=== PATIENT | female | born 1975 | race African-American/Black ===

== ENCOUNTER 2022-07-04 07:00 | Emergency (ER) | payer OTHER, SELFPAY ==
--- OUTSIDE RECORDS SUMMARY | 2022-07-04 07:07 | XMS REPORT | Continuity of Care Document ---
:1975 Author Organization [facility] t Address [address]. [address] [place] [address] Care Team Providers Name Role Phone Glo Moreno Attending Clinician Unavailable LEYDA PASTRANA Attending Clinician Unavailable Doctor Unassigned, [place] Attending Clinician Unavailable BON BAKER Attending Clinician Unavailable Lab, Adc Fam Pob I Attending Clinician Unavailable Torrie Silva Attending Clinician Unknown, Attending Attending Clinician Unavailable Bon Cunningham Attending Clinician [facility] Resident Attending Clinician Unavailable Margaret Floyd MD Attending Clinician Leyda Peralta Attending Clinician [phone] Mehran Desouza PA-C Attending Clinician [phone] MEHRAN DESOUZA JR Attending Clinician Unavailable Robert Ayoub B Attending Clinician Glo Moreno Admitting Clinician Unavailable Payers Payer Name Policy Type Policy Number Effective Date Expiration Date S ource Problems Condition Condition Condition Status Onset Resolution Last Treating Co mments Source Name Details Category Date Date Treatment Clinician Date Leiomyoma Leiomyoma Disease Active 2019-04 Uni vers of uterus of uterus 04-19 ity of 00:00: [place] [facility] Fibroid Fibroid Disease Active 2019-04 Univers 04-19 ity of 00:00: [place] [facility] Irregular Irregular Disease Active 2019-04 Uni vers menstrual menstrual 04-19 ity of bleeding bleeding 00:00: [place] [facility] Well woman Well woman Disease Active Overview : Univers exam (no exam (no 04-29 ROR for ity o f gynecologi gynecologi 00:00[place] gutierrez exam[place] gutierrez exam) 00 12/2019 Med ical Branch Surveillan Surveillan Disease Active U nivers ce of ce of 04-29 ity of [place] prescribed prescribed 00 Me dical contracept contracept Br anch horacio method horacio method H/O tubal H/O tubal Disease Active Uni vers ligation ligation 04-29 ity of 00:00: [place] [facility] Tobacco Tobacco Disease Active 2013-04 Univers use use 0-22 ity of disorder disorder 00:00: [place] [facility] Hypertensi Hypertensi Disease Active 2013-04 U nivers on on 0-22 ity of 00:00: [place] [facility] Allergies, Adverse Reactions, Alerts Allergy Allergy Status Severity Reaction(s) Onset Inactive Treating Comm ents Source Name Type Date Date Clinician Iodine FA Active [facility] and 07-16 [place] Iodide 00:00: d Containi [facility] Produc Iodine FA Active SV THROAT [facility] and SWELLING 07-16 [place] Iodide 00:00: d Containi [facility] Produc No Known DA Active U [facility] Allergie 31 [place] s 00:00: d 00 [facility] No Known DA Active U [facility] Allergie -31 [place] s 00:00: d 00 [facility] IODINE DRUG Active Anaphylaxis 2013-04 Unive rs INGREDI 0-15 ity of 00:00: [place] [facility] Iodine Propensi Active Anaphylaxis 2013-04 Uni vers ty to 0-15 ity of adverse 00:00: [place] reaction 00 Medical s Branch Social History Social Habit Start Date Stop Date Quantity Comments Source Exposure to Not sure University of SARS-CoV-2 [facility] (event) Branch History of Smoker University of tobacco use [facility] Alcohol intake 2020-02-18 2020-02-18 Current drinker of Un iversity of 00:00:00 00:00:00 alcohol (finding) [facility] Cigarettes smoked 2020-02-18 2020-02-18 Univers ity of current (pack per 00:00:00 00:00:00 [facility]) - Reported Branch Tobacco use and 2020-02-18 2020-02-18 Never used Universit y of exposure 00:00:00 00:00:00 [facility] Tobacco Comment 2014-01-29 2014-01-29 smokes a pack over U niversity of 00:00:00 00:00:00 2 weeks [facility] Alcohol Comment 2014-01-29 2014-01-29 occasionally Univers ity of 00:00:00 00:00:00 [facility] Sex [birth year] Universit y of 00:00:00 00:00:00 [facility] Smoking Status Start Date Stop Date Source Current every day smoker 2020-02-18 00:00:00 Uni versity [facility] Current some day smoker 2020-02-05 00:00:00 Univ ersity [facility] Medications Ordered Filled Start Stop Current Ordering Indication Dosage Frequency Signature Comments Components Source Medication Medication Date Date Medication? Clinician (SIG) Name Name ibuprofen 2019-04- No 800mg Univer s (IBU) 05-11 ity of tablet 800 22:54: 23:00 [place] mg 00 :00 [facility] ibuprofen 2019-04- No 800mg 800 mg, Uni vers (IBU) 05-11 Oral, ity of tablet 800 22:54: 23:00 ONCE, 1 [place] as mg 00 :00 dose, [facility] 03/11/20 Branch at 1700, Routine ibuprofen 2019-04- No 800mg Univer s (IBU) 05-11 ity of tablet 800 22:54: 23:00 [place] mg 00 :00 [facility] ibuprofen 2019-04- No 800mg 800 mg, Uni vers (IBU) 05-11 Oral, ity of tablet 800 22:54: 23:00 ONCE, 1 [place] as mg 00 :00 dose, [facility] 03/11/20 Branch at 1700, Routine HYDROcodone 2019-04 Yes 1{tbl} Take 1 Tab Univers -acetaminop 1-03 by mouth ity of hen (NORCO) 14:52: every 6 Raj as 10-325 mg 02 (six) Medical tablet hours as Branch needed. atenolol 2019-04 Yes 25mg Take 25 mg Uni vers (TENORMIN) 1-03 by mouth ity o f 25 mg 14:52: daily. [place] tablet [facility] SILVER 2019-04 Yes Apply to Univers SULFADIAZIN 1-03 area(s) as it y of E TOPICAL 14:52: needed. [address] HYDROcodone 2019-04 Yes 1{tbl} Take 1 Tab Univers -acetaminop 1-03 by mouth ity of hen (NORCO) 14:52: every 6 Raj as 10-325 mg 02 (six) Medical tablet hours as Branch needed. atenolol 2019-04 Yes 25mg Take 25 mg Uni vers (TENORMIN) 1-03 by mouth ity o f 25 mg 14:52: daily. [facility] SILVER 2019-04 Yes Apply to Univers SULFADIAZIN 1-03 area(s) as it y of E TOPICAL 14:52: needed. [address] HYDROcodone 2019-04 Yes 1{tbl} Take 1 Tab Univers -acetaminop 1-03 by mouth ity of hen (NORCO) 14:52: every 6 Raj as 10-325 mg 02 (six) Medical tablet hours as Branch needed. atenolol 2019-04 Yes 25mg Take 25 mg Uni vers (TENORMIN) 1-03 by mouth ity o f 25 mg 14:52: daily. [facility] [place] [facility] SILVER 2019-04 Yes Apply to Univers SULFADIAZIN 1-03 area(s) as it y of E TOPICAL 14:52: needed. [address] HYDROcodone 2019-04 Yes 1{tbl} Take 1 Tab Univers -acetaminop 1-03 by mouth ity of hen (NORCO) 14:52: every 6 Raj as 10-325 mg 02 (six) Medical tablet hours as Branch needed. atenolol 2019-04 Yes 25mg Take 25 mg Uni vers (TENORMIN) 1-03 by mouth ity o f 25 mg 14:52: daily. [facility] [place] [facility] Medical Branch SILVER 2019-04 Yes Apply to Univers SULFADIAZIN 1-03 area(s) as it y of E TOPICAL 14:52: needed. [address] HYDROcodone 2019-04 Yes 1{tbl} Take 1 Tab Univers -acetaminop 1-03 by mouth ity of hen (NORCO) 14:52: every 6 Raj as 10-325 mg 02 (six) Medical tablet hours as Branch needed. atenolol 2019-04 Yes 25mg Take 25 mg Uni vers (TENORMIN) 1-03 by mouth ity o f 25 mg 14:52: daily. [place] tablet [facility] SILVER 2019-04 Yes Apply to Univers SULFADIAZIN 1-03 area(s) as it y of E TOPICAL 14:52: needed. [address] HYDROcodone 2019-04 Yes 1{tbl} Take 1 Tab Univers -acetaminop 1-03 by mouth ity of hen (NORCO) 14:52: every 6 Raj as 10-325 mg 02 (six) Medical tablet hours as Branch needed. atenolol 2019-04 Yes 25mg Take 25 mg Uni vers (TENORMIN) 1-03 by mouth ity o f 25 mg 14:52: daily. [place] tablet [facility] SILVER 2019-04 Yes Apply to Univers SULFADIAZIN 1-03 area(s) as it y of E TOPICAL 14:52: needed. [address] HYDROcodone 2019-04 Yes 1{tbl} Take 1 Tab Univers -acetaminop 1-03 by mouth ity of hen (NORCO) 14:52: every 6 Raj as 10-325 mg 02 (six) Medical tablet hours as Branch needed. atenolol 2019-04 Yes 25mg Take 25 mg Uni vers (TENORMIN) 1-03 by mouth ity o f 25 mg 14:52: daily. [place] tablet [facility] SILVER 2019-04 Yes Apply to Univers SULFADIAZIN 1-03 area(s) as it y of E TOPICAL 14:52: needed. [address] HYDROcodone 2019-04 Yes 1{tbl} Take 1 Tab Univers -acetaminop 1-03 by mouth ity of hen (NORCO) 14:52: every 6 Raj as 10-325 mg 02 (six) Medical tablet hours as Branch needed. atenolol 2020-1 Yes 25mg Take 25 mg Uni vers (TENORMIN) 1-03 by mouth ity o f 25 mg 14:52: daily. [place] tablet Medical [place] SILVER 2019-04 Yes Apply to Univers SULFADIAZIN 1-03 area(s) as it y of E TOPICAL 14:52: needed. [address] HYDROcodone 2019-04 Yes 1{tbl} Take 1 Tab Univers -acetaminop 1-03 by mouth ity of hen (NORCO) 14:52: every 6 Raj as 10-325 mg 02 (six) Medical tablet hours as Branch needed. atenolol 2019-04 Yes 25mg Take 25 mg Uni vers (TENORMIN) 1-03 by mouth ity o f 25 mg 14:52: daily. [place] tablet [facility] SILVER 2019-04 Yes Apply to Univers SULFADIAZIN 1-03 area(s) as it y of E TOPICAL 14:52: needed. [address] HYDROcodone 2019-04 Yes 1{tbl} Take 1 Tab Univers -acetaminop 1-03 by mouth ity of hen (NORCO) 14:52: every 6 Raj as 10-325 mg 02 (six) Medical tablet hours as Branch needed. atenolol 2019-04 Yes 25mg Take 25 mg Uni vers (TENORMIN) 1-03 by mouth ity o f 25 mg 14:52: daily. [place] tablet [facility] SILVER 2019-04 Yes Apply to Univers SULFADIAZIN 1-03 area(s) as it y of E TOPICAL 14:52: needed. [address] HYDROcodone 2019-04 Yes 1{tbl} Take 1 Tab Univers -acetaminop 1-03 by mouth ity of hen (NORCO) 14:52: every 6 Raj as 10-325 mg 02 (six) Medical tablet hours as Branch needed. atenolol 2019-04 Yes 25mg Take 25 mg Uni vers (TENORMIN) 1-03 by mouth ity o f 25 mg 14:52: daily. [facility] [place] [facility] SILVER 2019-04 Yes Apply to Univers SULFADIAZIN 1-03 area(s) as it y of E TOPICAL 14:52: needed. [address] HYDROcodone 2019-04 Yes 1{tbl} Take 1 Tab Univers -acetaminop 1-03 by mouth ity of hen (NORCO) 14:52: every 6 Raj as 10-325 mg 02 (six) Medical tablet hours as Branch needed. atenolol 2019-04 Yes 25mg Take 25 mg Uni vers (TENORMIN) 1-03 by mouth ity o f 25 mg 14:52: daily. tablet Medical [place] SILVER 2019-04 Yes Apply to Univers SULFADIAZIN 1-03 area(s) as it y of E TOPICAL 14:52: needed. [place] [facility] HYDROcodone 2019-04 Yes 1{tbl} Take 1 Tab Univers -acetaminop 1-03 by mouth ity of hen (NORCO) 14:52: every 6 Raj as 10-325 mg 02 (six) Medical tablet hours as Branch needed. atenolol 2019-04 Yes 25mg Take 25 mg Uni vers (TENORMIN) 1-03 by mouth ity o f 25 mg 14:52: daily. tablet [facility] SILVER 2019-04 Yes Apply to Univers SULFADIAZIN 1-03 area(s) as it y of E TOPICAL 14:52: needed. [place] [facility] HYDROcodone 2019-04 Yes 1{tbl} Take 1 Tab Univers -acetaminop 1-03 by mouth ity of hen (NORCO) 14:52: every 6 Raj as 10-325 mg 02 (six) Medical tablet hours as Branch needed. atenolol 2019-04 Yes 25mg Take 25 mg Uni vers (TENORMIN) 1-03 by mouth ity o f 25 mg 14:52: daily. tablet [facility] SILVER 2019-04 Yes Apply to Univers SULFADIAZIN 1-03 area(s) as it y of E TOPICAL 14:52: needed. [place] [facility] HYDROcodone 2019-04 Yes 1{tbl} Take 1 Tab Univers -acetaminop 1-03 by mouth ity of hen (NORCO) 14:52: every 6 Raj as 10-325 mg 02 (six) Medical tablet hours as Branch needed. atenolol 2019-04 Yes 25mg Take 25 mg Uni vers (TENORMIN) 1-03 by mouth ity o f 25 mg 14:52: daily. tablet [facility] SILVER 2019-04 Yes Apply to Univers SULFADIAZIN 1-03 area(s) as it y of E TOPICAL 14:52: needed. [place] [facility] HYDROcodone 2019-04 Yes 1{tbl} Take 1 Tab Univers -acetaminop 1-03 by mouth ity of hen (NORCO) 14:52: every 6 Raj as 10-325 mg 02 (six) Medical tablet hours as Branch needed. atenolol 2019-04 Yes 25mg Take 25 mg Uni vers (TENORMIN) 1-03 by mouth ity o f 25 mg 14:52: daily. [place] tablet Medical [place] SILVER 2019-04 Yes Apply to [facility] SULFADIAZIN 1-03 area(s) as it y of E TOPICAL 14:52: needed. [place] [facility] HYDROcodone 2019-04 Yes 1{tbl} Take 1 Tab Univers -acetaminop 1-03 by mouth ity of hen (NORCO) 14:52: every 6 Raj as 10-325 mg 02 (six) Medical tablet hours as Branch needed. atenolol 2019-04 Yes 25mg Take 25 mg Uni vers (TENORMIN) 1-03 by mouth ity o f 25 mg 14:52: daily. [place] tablet [facility] SILVER 2019-04 Yes Apply to [facility] SULFADIAZIN 1-03 area(s) as it y of E TOPICAL 14:52: needed. [place] [facility] ketorolac 2019-04 2020- No 15mg 15 mg, Unive rs (TORADOL) 0- 10-21 Slow IV ity of injection 21:15: 20:24 [place], [place] 15 mg 00 :00 ONCE, 1 Medical dose, [facility] 02/05/20 at 1615, DEISI
Fa culty member approving Restricted medication : NISSA ANDERSON diphenhydrA 2019-04 2020- No 25mg 25 mg, Uni vers MINE 0- 10-21 Slow IV ity of (BENADRYL) 21:15: 20:23 [place], [place] injection 00 :00 ONCE, 1 Medical 25 mg dose, [facility] 02/05/20 at 1615, STAT metoclopram 2019-04 2020- No 10mg 10 mg, Uni vers martha HCl 0-21 10-21 Slow IV ity of (REGLAN) 21:15: 20:24 [place], [place] injection 00 :00 ONCE, 1 Medical 10 mg dose, [facility] 02/05/20 at 1615, DEISI NaCl 0.9% 2019-04 2020- No 1000mL at 999 Uni vers (NS) bolus 0-21 10-21 mL/hr, ity of infusion 20:15: 21:15 1,000 mL, Raj as 1,000 mL 00 :00 IV Medical Infusion, Branch ONCE, 1 dose, 02/05/20 at 1515, DEISI metoclopram 2019- Yes [id number] 10mg Take 1 Univers martha HCl 10 0-21 tablet by ity of mg tablet 00:00: mouth [place] 00 every 6 Medical (six) Branch hours as needed for Nausea and Vomiting (N/V). butalbital- 2020- Yes [id number] 1{tbl} Take 1 Univers acetaminoph 0-21 tablet by ity of en-caff 00:00: mouth [place] 50-325-40 00 every 6 Medical mg tablet (six) Branch hours as needed for Pain (scale 7-10). metoclopram 2019- Yes [id number] 10mg Take 1 Univers martha HCl 10 0-21 tablet by ity of mg tablet 00:00: mouth [place] 00 every 6 Medical (six) Branch hours as needed for Nausea and Vomiting (N/V). butalbital- 2019- Yes [id number] 1{tbl} Take 1 Univers acetaminoph 0-21 tablet by ity of en-caff 00:00: mouth [place] 50-325-40 00 every 6 Medical mg tablet (six) Branch hours as needed for Pain (scale 7-10). metoclopram 2019- Yes [id number] 10mg Take 1 Univers martha HCl 10 0-21 tablet by ity of mg tablet 00:00: mouth [place] 00 every 6 Medical (six) Branch hours as needed for Nausea and Vomiting (N/V). butalbital- 2020- Yes [id number] 1{tbl} Take 1 Univers acetaminoph 0-21 tablet by ity of en-caff 00:00: mouth [place] 50-325-40 00 every 6 Medical mg tablet (six) Branch hours as needed for Pain (scale 7-10). metoclopram 2020- Yes [id number] 10mg Take 1 Univers martha HCl 10 0-21 tablet by ity of mg tablet 00:00: mouth [place] 00 every 6 Medical (six) Branch hours as needed for Nausea and Vomiting (N/V). butalbital- 2019- Yes [id number] 1{tbl} Take 1 Univers acetaminoph 0-21 tablet by ity of en-caff 00:00: mouth [place] 50-325-40 00 every 6 Medical mg tablet (six) Branch hours as needed for Pain (scale 7-10). metoclopram 2019-04 Yes [id number] 10mg Take 1 Univers martha HCl 10 0-21 tablet by ity of mg tablet 00:00: mouth [place] 00 every 6 Medical (six) Branch hours as needed for Nausea and Vomiting (N/V). butalbital- 2019-04 Yes [id number] 1{tbl} Take 1 Univers acetaminoph 0-21 tablet by ity of en-caff 00:00: mouth [place] 50-325-40 00 every 6 Medical mg tablet (six) Branch hours as needed for Pain (scale 7-10). metoclopram 2019-04 Yes [id number] 10mg Take 1 Univers martha HCl 10 0-21 tablet by ity of mg tablet 00:00: mouth [place] 00 every 6 Medical (six) Branch hours as needed for Nausea and Vomiting (N/V). butalbital- 2019-04 Yes [id number] 1{tbl} Take 1 Univers acetaminoph 0-21 tablet by ity of en-caff 00:00: mouth [place] 50-325-40 00 every 6 Medical mg tablet (six) Branch hours as needed for Pain (scale 7-10). metoclopram 2019-04 Yes [id number] 10mg Take 1 Univers martha HCl 10 0-21 tablet by ity of mg tablet 00:00: mouth [place] 00 every 6 Medical (six) Branch hours as needed for Nausea and Vomiting (N/V). butalbital- 2019-04 Yes [id number] 1{tbl} Take 1 Univers acetaminoph 0-21 tablet by ity of en-caff 00:00: mouth [place] 50-325-40 00 every 6 Medical mg tablet (six) Branch hours as needed for Pain (scale 7-10). metoclopram 2019-04 Yes [id number] 10mg Take 1 Univers martha HCl 10 0-21 tablet by ity of mg tablet 00:00: mouth [place] 00 every 6 Medical (six) Branch hours as needed for Nausea and Vomiting (N/V). butalbital- 2019-04 Yes [id number] 1{tbl} Take 1 Univers acetaminoph 0-21 tablet by ity of en-caff 00:00: mouth [place] 50-325-40 00 every 6 Medical mg tablet (six) Branch hours as needed for Pain (scale 7-10). metoclopram 2019-04 Yes [id number] 10mg Take 1 Univers martha HCl 10 0-21 tablet by ity of mg tablet 00:00: mouth [place] 00 every 6 Medical (six) Branch hours as needed for Nausea and Vomiting (N/V). butalbital- 2019-04 Yes [id number] 1{tbl} Take 1 Univers acetaminoph 0-21 tablet by ity of en-caff 00:00: mouth [place] 50-325-40 00 every 6 Medical mg tablet (six) Branch hours as needed for Pain (scale 7-10). metoclopram 2019-04 Yes [id number] 10mg Take 1 Univers martha HCl 10 0-21 tablet by ity of mg tablet 00:00: mouth [place] 00 every 6 Medical (six) Branch hours as needed for Nausea and Vomiting (N/V). butalbital- 2019-04 Yes [id number] 1{tbl} Take 1 Univers acetaminoph 0-21 tablet by ity of en-caff 00:00: mouth [place] 50-325-40 00 every 6 Medical mg tablet (six) Branch hours as needed for Pain (scale 7-10). metoclopram 2019-04 Yes [id number] 10mg Take 1 Univers martha HCl 10 0-21 tablet by ity of mg tablet 00:00: mouth [place] 00 every 6 Medical (six) Branch hours as needed for Nausea and Vomiting (N/V). butalbital- 2019-04 Yes [id number] 1{tbl} Take 1 Univers acetaminoph 0-21 tablet by ity of en-caff 00:00: mouth [place] 50-325-40 00 every 6 Medical mg tablet (six) Branch hours as needed for Pain (scale 7-10). metoclopram 2019-04 Yes [id number] 10mg Take 1 Univers martha HCl 10 0-21 tablet by ity of mg tablet 00:00: mouth [place] 00 every 6 Medical (six) Branch hours as needed for Nausea and Vomiting (N/V). butalbital- 2019-04 Yes [id number] 1{tbl} Take 1 Univers acetaminoph 0-21 tablet by ity of en-caff 00:00: mouth [place] 50-325-40 00 every 6 Medical mg tablet (six) Branch hours as needed for Pain (scale 7-10). metoclopram 2020- Yes [id number] 10mg Take 1 Univers martha HCl 10 0-21 tablet by ity of mg tablet 00:00: mouth [place] 00 every 6 Medical (six) Branch hours as needed for Nausea and Vomiting (N/V). butalbital- 2020- Yes [id number] 1{tbl} Take 1 Univers acetaminoph 0-21 tablet by ity of en-caff 00:00: mouth [place] 50-325-40 00 every 6 Medical mg tablet (six) Branch hours as needed for Pain (scale 7-10). metoclopram 2020 Yes [id number] 10mg Take 1 Univers martha HCl 10 0-21 tablet by ity of mg tablet 00:00: mouth [place] 00 every 6 Medical (six) Branch hours as needed for Nausea and Vomiting (N/V). butalbital- 2019- Yes [id number] 1{tbl} Take 1 Univers acetaminoph 0-21 tablet by ity of en-caff 00:00: mouth [place] 50-325-40 00 every 6 Medical mg tablet (six) Branch hours as needed for Pain (scale 7-10). metoclopram 2019-04 Yes [id number] 10mg Take 1 Univers martha HCl 10 0-21 tablet by ity of mg tablet 00:00: mouth [place] 00 every 6 Medical (six) Branch hours as needed for Nausea and Vomiting (N/V). butalbital- 2019- Yes [id number] 1{tbl} Take 1 Univers acetaminoph 0-21 tablet by ity of en-caff 00:00: mouth [place] 50-325-40 00 every 6 Medical mg tablet (six) Branch hours as needed for Pain (scale 7-10). metoclopram 2020 Yes [id number] 10mg Take 1 Univers martha HCl 10 0-21 tablet by ity of mg tablet 00:00: mouth [place] 00 every 6 Medical (six) Branch hours as needed for Nausea and Vomiting (N/V). butalbital- 2019-04 Yes [id number] 1{tbl} Take 1 Univers acetaminoph 0-21 tablet by ity of en-caff 00:00: mouth [place] 50-325-40 00 every 6 Medical mg tablet (six) Branch hours as needed for Pain (scale 7-10). metoclopram 2019-04 Yes [id number] 10mg Take 1 Univers martha HCl 10 0-21 tablet by ity of mg tablet 00:00: mouth [place] 00 every 6 Medical (six) Branch hours as needed for Nausea and Vomiting (N/V). butalbital- 2019-04 Yes [id number] 1{tbl} Take 1 Univers acetaminoph 0-21 tablet by ity of en-caff 00:00: mouth [place] 50-325-40 00 every 6 Medical mg tablet (six) Branch hours as needed for Pain (scale 7-10). metoclopram 2019-04 Yes [id number] 10mg Take 1 Univers martha HCl 10 0-21 tablet by ity of mg tablet 00:00: mouth [place] 00 every 6 Medical (six) Branch hours as needed for Nausea and Vomiting (N/V). butalbital- 2019-04 Yes [id number] 1{tbl} Take 1 Univers acetaminoph 0-21 tablet by ity of en-caff 00:00: mouth [place] 50-325-40 00 every 6 Medical mg tablet (six) Branch hours as needed for Pain (scale 7-10). metoclopram 2019-04 Yes [id number] 10mg Take 1 Univers martha HCl 10 0-21 tablet by ity of mg tablet 00:00: mouth [place] 00 every 6 Medical (six) Branch hours as needed for Nausea and Vomiting (N/V). butalbital- 2019-04 Yes [id number] 1{tbl} Take 1 Univers acetaminoph 0-21 tablet by ity of en-caff 00:00: mouth [place] 50-325-40 00 every 6 Medical mg tablet (six) Branch hours as needed for Pain (scale 7-10). metoclopram 2019-04 Yes [id number] 10mg Take 1 Univers martha HCl 10 0-21 tablet by ity of mg tablet 00:00: mouth [place] 00 every 6 Medical (six) Branch hours as needed for Nausea and Vomiting (N/V). butalbital- 2019-04 Yes [id number] 1{tbl} Take 1 Univers acetaminoph 0-21 tablet by ity of en-caff 00:00: mouth [place] 50-325-40 00 every 6 Medical mg tablet (six) Branch hours as needed for Pain (scale 7-10). atenolol 2015-0 Yes 25mg Take 25 mg Uni vers (TENORMIN) 1-13 by mouth ity o f 25 mg 22:32: daily. [place] tablet 55 Medical Branch HYDROcodone 0 Yes 1{tbl} Take 1 Tab Univers -acetaminop 1-13 by mouth ity of hen (NORCO) 22:32: every 6 Raj as 10-325 mg 55 (six) Medical tablet hours as Branch needed. atenolol Yes 25mg Take 25 mg Uni vers (TENORMIN) 1-13 by mouth ity o f 25 mg 22:32: daily. [place] tablet 55 Medical Branch HYDROcodone Yes 1{tbl} Take 1 Tab Univers -acetaminop 1-13 by mouth ity of hen (NORCO) 22:32: every 6 Raj as 10-325 mg 55 (six) Medical tablet hours as Branch needed. atenolol Yes 25mg Take 25 mg Uni vers (TENORMIN) 1-13 by mouth ity o f 25 mg 22:32: daily. [place] tablet 55 [facility] HYDROcodone Yes 1{tbl} Take 1 Tab Univers -acetaminop 1-13 by mouth ity of hen (NORCO) 22:32: every 6 Raj as 10-325 mg 55 (six) Medical tablet hours as Branch needed. [place] 2013-04 Yes Apply to Univers SULFADIAZIN 0-15 area(s) as it y of E TOPICAL 20:58: needed. [address] [place] 2013-04 Yes Apply to Univers SULFADIAZIN 0-15 area(s) as it y of E TOPICAL 20:58: needed. [address] [place] 2013-04 Yes Apply to Univers SULFADIAZIN 0-15 area(s) as it y of E TOPICAL 20:58: needed. [address] Immunizations Ordered Filled Immunization Date Status Comments [facility] e Immunization Name Name WES 2014-01-29 Completed University of 00:00:00 [facility] TDAP 2014-01-29 Completed University of 00:00:00 [facility] TDAP 2014-01-29 Completed University of 00:00:00 [facility] TDAP 2014-01-29 Completed University of 00:00:00 [facility] TDAP 2014-01-29 Completed University of 00:00:00 [facility] TDAP 2014-01-29 Completed University of 00:00:00 [place] [facility] TDAP 2014-01-29 Completed University of 00:00:00 [place] [facility] TDAP 2014-01-29 Completed University of 00:00:00 [place] [facility] TDAP 2014-01-29 Completed University of 00:00:00 [place] [facility] TDAP 2014-01-29 Completed University of 00:00:00 [place] [facility] TDAP 2014-01-29 Completed University of 00:00:00 [place] [facility] TDAP 2014-01-29 Completed University of 00:00:00 [place] [facility] TDAP 2014-01-29 Completed University of 00:00:00 [place] [facility] TDAP 2014-01-29 Completed University of 00:00:00 [place] [facility] TDAP 2014-01-29 Completed University of 00:00:00 [place] [facility] TDAP 2014-01-29 Completed University of 00:00:00 [place] [facility] TDAP 2014-01-29 Completed [facility] 00:00:00 [facility] TDAP 2014-01-29 Completed [facility] 00:00:00 [facility] TDAP 2014-01-29 Completed [facility] 00:00:00 [facility] TDAP 2014-01-29 Completed [facility] 00:00:00 [facility] Vital Signs Vital Name Observation Time Observation Value Comments Source Systolic blood 2020-03-11 21:32:00 138 mm[Hg] Univer sity of pressure [facility] Diastolic blood 2020-03-11 21:32:00 84 mm[Hg] Unive rsity of [facility] Heart rate 2020-03-11 21:29:00 96 /min [facility] Body temperature 2020-03-11 21:29:00 36.89 [facility] Res[facility] rate 2020-03-11 21:29:00 22 /min [facility] Body height 2020-03-11 21:29:00 162.6 cm [facility] Body weight 2020-03-11 21:29:00 76.34 kg [facility] BMI 2020-03-11 21:29:00 28.89 kg/m2 [facility] Systolic blood 2020-03-11 21:32:00 138 mm[Hg] Univer sity of pressure [facility] Diastolic blood 2020-03-11 21:32:00 84 mm[Hg] Unive rsity of pressure [facility] Heart rate 2020-03-11 21:29:00 96 /min Universi ty of [facility] Body temperature 2020-03-11 21:29:00 36.89 Deidra Univ ersity of [facility] Respiratory rate 2020-03-11 21:29:00 22 /min Univ ersity of [facility] Body height 2020-03-11 21:29:00 162.6 cm Universi ty of [facility] Body weight 2020-03-11 21:29:00 76.34 kg Universi ty of [facility] BMI 2020-03-11 21:29:00 28.89 kg/m2 Universi ty of [facility] Systolic blood 2020-02-18 14:34:00 135 mm[Hg] Univer sity of pressure [facility] Diastolic blood 2020-02-18 14:34:00 90 mm[Hg] Unive rsity of pressure [facility] Heart rate 2020-02-18 14:34:00 80 /min Universi ty of [facility] Body temperature 2020-02-18 14:34:00 36.56 Deidra Univ ersity of [facility] Respiratory rate 2020-02-18 14:34:00 16 /min Univ ersity of [facility] Body height 2020-02-18 14:34:00 162.6 cm Universi ty of [facility] Body weight 2020-02-18 14:34:00 77.225 kg Universi ty of [facility] BMI 2020-02-18 14:34:00 29.22 kg/m2 Universi ty of [facility] Systolic blood 2020-02-05 21:28:08 130 mm[Hg] Univer sity of pressure [facility] Diastolic blood 2020-02-05 21:28:08 84 mm[Hg] Unive rsity of pressure [facility] Heart rate 2020-02-05 21:28:08 70 /min Universi ty of [facility] Body temperature 2020-02-05 21:28:08 36.67 Deidra Univ ersity of [facility] Respiratory rate 2020-02-05 21:28:08 17 /min Univ ersity of [facility] Oxygen saturation in 2020-02-05 21:28:08 100 /min University of Arterial blood by [facility] Pulse oximetry Branch Body height 2020-02-05 19:18:00 162.6 cm [facility] Body weight 2020-02-05 19:18:00 72.576 kg [facility] BMI 2020-02-05 19:18:00 27.46 kg/m2 [facility] Procedures Procedure Date / Time Performing Clinician Source Performed EXTERNAL PROVIDER 2020-07-02 05:01:00 Doctor Unassigned, No [facility] RECORDS Name [facility] AUTHORIZATION FOR 2020-05-03 06:01:00 Doctor Unassigned, No [facility] RELEASE OF PHI Name Medical Branch AUTHORIZATION FOR 2020-03-22 06:01:00 Doctor Unassigned, No [facility] RELEASE OF [facility] Name [facility] [place] FREE T4 2020-03-11 23:00:00 Sajan Nguyen Laurel o f [facility] THYROID STIMULATING 2020-03-11 23:00:00 Nguyen Moeller [facility] EXTERNAL PROVIDER 2020-03-04 06:01:00 Doctor Unassigned, No [facility] RECORDS Name [facility] CONSENT TO CONTACT FOR 2020-02-18 13:58:53 Doctor Unassigned, No [facility] VOLUNTARY RESEARCH Name [facility] h ASSIGNMENT OF BENEFITS 2020-02-06 15:01:30 Doctor Unassigned, No [facility] TROPONIN I 2020-02-05 20:22:00 Robert Whyte [facility] COMP. METABOLIC PANEL 2020-02-05 20:22:00 Robert Whyte [facility] ([id number]) [facility] CBC WITH DIFF 2020-02-05 20:22:00 Robert Whyte [facility] URINALYSIS 2020-02-05 20:22:00 Robert Whyte [facility] EKG-12 LEAD 2020-02-05 20:15:01 Robert Whyte [facility] NOTICE OF PRIVACY 2020-02-05 19:09:12 Doctor Unassigned, No Univ [facility] PRACTICES Name [facility] [place] Encounters Start End Encounter Admission Attending Care Care Encounter Source Date/Time Date/Time Type Type Clinicians Facility Department ID 2020-07-13 [id number] [facility] 11:21:[address] [place] [address] 2020-12-21 2020-12-21 Outpatient R ZEINA, [facility] [id number] Univers 16:30:00 16:30:00 LEYDA ity o f [facility] 2020-07-02 2020-07-02 Orders Doctor MAURICE 1.2.840.114 [id number] Univers 00:00:00 00:00:00 Only Unassigned, EMMA 350.1.13.10 ity of [place] [facility] 4.2.7.2.686 Raj as [phone] [address] 2020-07-02 2020-07-02 Orders Doctor MAURICE 1.2.840.114 [id number] 00:00:00 00:00:00 Only Unassigned, EMMA 350.1.13.10 [place] [facility] 4.2.7.2.686 [id number] 2020-05-03 2020-05-03 Orders Doctor MAURICE 1.2.840.114 [id number] Univers 00:00:00 00:00:00 Only Unassigned, EMMA 350.1.13.10 ity of [place] [facility] 4.2.7.2.686 Raj as [phone] [address] 2020-05-03 2020-05-03 Orders Doctor MAURICE 1.2.840.114 [id number] 00:00:00 00:00:00 Only Unassigned, EMMA 350.1.13.10 [facility] 4.2.7.2.686 [id number] 2020-04-20 2020-04-20 Outpatient R BLANCA, [facility] [id number] Univers 15:00:00 15:00:00 BON ity of [facility] 2020-03-24 2020-03-24 Outpatient R [facility] [id number] Univers 19:20:00 19:20:00 ity of [facility] 2020-03-24 2020-03-24 Laboratory Lab, Adc Fam Pob I [facility] 1.2. 840.114 [id number] Univers 18:55:56 19:15:56 Only Torrie Ceja [facility] 350.1.13.10 ity of Unknown, Attending [place] 4.2.7.2.686 [place] Professio [phone] Me dical nal [address] [place] [address] 2020-03-24 2020-03-24 Laboratory Lab, [facility] 1.2.840.114 [id number] 18:55:56 19:15:56 Only Fam Pob I Health 350.1.13.10 [place] 4.2.7.2.686 Professio [phone] nal [address] 2020-03-22 2020-03-22 Orders Doctor KAYLENE 1.2.840.114 [id number] Univers 00:00:00 00:00:00 Only Unassigned, EMMA 350.1.13.10 ity of [place] [facility] 4.2.7.2.686 Raj as [phone] [address] 2020-03-22 2020-03-22 Orders Doctor KAYLENE 1.2.840.114 [id number] 00:00:00 00:00:00 Only Unassigned, EMMA 350.1.13.10 [place] [facility] 4.2.7.2.686 [id number] [facility] 2020-03-18 2020-03-18 Telephone RADU BakerIT 1.2.840.114 [id number] Univers 00:00:00 00:00:00 Bon Y HEALTH 350.1.13.10 i ty [place] [phone] [address] 2020-03-18 2020-03-18 Telephone RADU BakerIT 1.2.840.114 [id number] 00:00:00 00:00:00 [place] HEALTH 350.1.13.10 CLINICS 4.2.7.2.686 [id number] [facility] 2020-03-17 2020-03-17 Telephone RADHA Baker 1.2.840.114 [id number] Univers 00:00:00 00:00:00 [place] HEALTH 350.1.13.10 i ty [place] [id number] [address] 2020-03-17 2020-03-17 Telephone RADU BakerIT 1.2.840.114 [id number] 00:00:00 00:00:00 [place] HEALTH 350.1.13.10 CLINICS 4.2.7.2.686 [id number] [facility] 2020-03-11 2020-03-11 Office Pool, [facility] Resident UNIVERSIT 1.2.8 40.114 [id number] Univers 15:13:01 16:56:59 Visit Margaret Floyd Y HEALTH 350.1.13. 10 ity of [facility] [place] [phone] [facility] [address] [place] 2020-03-11 2020-03-11 Office Pool, [facility] UNIVERSIT 1.2.840.114 [id number] 15:13:01 16:56:59 Visit [facility] HEALTH 350.1.13.10 CLINICS 4.2.7.2.686 [id number] [facility] 2020-03-11 2020-03-11 Outpatient R [facility] [id number] Univers 15:15:00 15:15:00 ity of [facility] 2020-03-05 2020-03-05 Outpatient R [facility] [id number] Univers 14:30:00 14:30:00 ity of [facility] 2020-03-04 2020-03-04 Orders Doctor KAYLENE 1.2.840.114 [id number] Univers 00:00:00 00:00:00 Only Unassigned, EMMA 350.1.13.[address] [place] [facility] 4.2.7.2.686 Raj as [phone] [facility] [address] [place] 2020-02-25 2020-02-25 Telephone [facility] 1.2.840.114 [id number] Univers 00:00:00 00:00:00 Leyda Jaimes SERVICE OFFICER 350.1.13.10 ity of [facility] 4.2.7.2.686 Raj as MATERNAL [phone] Med ical & CHILD [address] [place] [address] 2020-02-22 2020-02-22 Laboratory Lab, Adc Fam Pob I [facility] 1.2. 840.114 [id number] Univers 10:28:56 10:48:56 Only Mehran Desouza [facility] 350.1.13 .10 ity of [place] 4.2.7.2.686 Raj as Professio [phone] Va dical [facility] [address] [place] [address] 2020-02-22 2020-02-22 Outpatient R DEO [facility] [id number] Univers 10:20:00 10:20:00 MEHRAN RODRIGUES of [facility] 2020-02-18 2020-02-18 Office Akinsipe, [facility] 1.2.175.652 [id number] Univers 08:24:22 09:39:21 Visit Leyda Jaimes SERVICE OFFICER 350.1.13.10 ity of [facility] 4.2.7.2.686 Raj as MATERNAL [phone] Med ical & CHILD [address] [place] [address] 2020-02-18 2020-02-18 Outpatient R ZEINA, [facility] [id number] Univers 08:30:00 08:30:00 LEYDA umana [facility] 2020-02-18 2020-02-18 Outpatient R AKINFRANCES, [facility] [id number] Univers 08:00:00 08:28:58 LEYDA umana [facility] 2020-02-18 2020-02-18 Outpatient R AKINSIPE, [facility] [id number] Univers 08:00:00 08:00:00 LEYDA umana [facility] 2020-02-18 2020-02-18 Orders Doctor MAURICE 1.2.840.114 [id number] Univers 00:00:00 00:00:00 Only Unassigned, EMMA 350.1.13.10 ity of [place] [facility] 4.2.7.2.686 Raj as [phone] [address] 2020-02-06 2020-02-06 Orders Doctor KAYLENE 1.2.840.114 [id number] Univers 00:00:00 00:00:00 Only Unassigned, EMMA 350.1.13.[address] [place] [facility] 4.2.7.2.686 Raj as [phone] [address] 2020-02-05 2020-02-05 Emergency [facility] 1.2.840.114 [id number] Univers 14:21:00 16:31:00 Robert Rubio 350.1.13.10 i ty of [place] 4.2.7.2.686 [facility] [phone] [address] 2020-02-05 2020-02-05 Emergency X [facility] ERT [id number] Univers 14:10:00 14:10:00 ity of [facility] Results Test Description Test Time Test Comments Results Result Comments Source SURG 2020-07-20 15:31:00 Test Item Value Reference Range Interpretation Comme nts SURG RUN (test DATE: 07/20/20 ALEXIS Morales [facility] - LAB PAGE 1 RUN TIME: 1532 Specimen Inquiry RUN USER: code = INTERFACE SURG) BRENNAN T: NADIYA MYERS ACCT #: [place] [id number] LOC: SHILPA U #: [id number] AGE/SX: 45/F ROOM: RE07/16/20LIZET DR: Tung Moreno : 73 BED: DIS: STATUS: [place] [facility] [place]: SPEC #: [id number] RECD: STATUS: CYNTHIA CASTELLANOS #: [id number] CY: 07/16/[address]: Glo Moreno MD ENTERED: 07/16/20 SP TYPE: SURG OTHR DR: No Primary or Family PhysicianORDERED: SURG PATH LVL 5 COPIES TO: No Primary or Family Physician Glo Moreno MD [address] [place] [address] HISTOLOGY: TISSUE ID BLK PCS DESIRE LEV PROCEDURE D ISPOSITION ____ ___ ___ ___ UTERUS, NOS A 1 2 PROCEDURES: SURG PATH LVL 5 (07/16/20) TISSUES: A. UTERUS, NOS - UTERUS AND FALLOPIAN TUBES CLINICAL HISTORY EXCESS/FREQ MENSES - N92.1; PAIN - R10.2; LEIOMYOMA - D25.9 CPT CODES CPT CODE(S ): 75543 , , , , , , FINAL DIAGNOSIS Uterus and fallopian tubes, hysterectomy and bilateral s alpingectomy: CHRONIC CERVICITIS SECRETORY PHASE ENDOMETRIUM ADENOMYOSIS LEIOMYOMAS BILAT ERAL FALLOPIAN TUBES WITH PARATUBAL CYSTS GROSS DESCRIPTION Uterus and fallopian tubes. Received in formalin is a 283.6-gram hysterectomy and bilateral salpingectomy specimen and include a uteru s with attached cervix (12.5 x 9.0 x 6.0 cm, 279.7 gms), a detached longer segment of fallopian tube with fimbriated end (4.0 x 0.8 x 0.6 cm), and a shorter detached segment of CONTINUED ON NEXT PAGE RUN DATE: 07/20/20 ALEXIS Morales [facility] - LAB PAGE 2 RUN TIME: 1532 Specimen Inquiry RUN USER: INTERFACE SPEC #: [facility]:[id number] PATIENT: NADIYA MYERS #[id number] (Continued) ----- GROSS DESCRIPTION (Con tinued) fallopian tube (3.5 x 1.0 x 0.8 cm). The serosal surface is osorio-brown, generally smooth and glistening. The cervix, 3.7 x 3.5 x 3.5 cm, has a osorio exocervix and a linear os, 0.5 cm. The uterine corpus is markedly enlarged and distorted. There are 2 subserosal nodules, 1.1 and 5.0 cm in greatest dimension. The endometrial cavity measures 2.8 cm from cornu to cornu by 4.5 c m in length with a hemorrhagic endometrium, 0.2 cm. The myometrium is maximally 3.0 cm in thicknes s and contains approximately 5 intramural nodules, ranging from 0.5 - 1.7 cm in greatest dimension . The subserosal and intramural nodules have homogeneous, dense, osorio, fibrous cut surfaces with th e whorled appearance and without hemorrhage or necrosis. The longer segment of fallopian tube, h as a patent lumen and is grossly unremarkable. The shorter segment of fallopian tube is slightly t ortuous, has a patent lumen and is grossly unremarkable. Section code: A1 Anterior cervix A2 Poste rior cervix A3 -4 Anterior endometrium/myometrium A5 -6 Posterior endometrium/myometrium A7 -1 0 Multiple intramural nodules A11 -13 Large subserosal nodule A14 Small subserosal nodule A15 Serosa (Cul-de-sac) A16 Entire fimbria, longer fallopian tube A17 Longer segment of fallopian tube A18 Entire fimbria, shorter fallopian tube A19 [place] segment of fallopian tube Grossing perf ormed at [facility] Pathology, [address], [address], [place], [place] [address]. Medica l Director: Dante Ying M.D. MICROSCOPIC DESCRIPTION Uterus and fallopian tubes. Sections de monstrate squamous ectocervix with glandular endocervix. Chronic cervicitis is identified. Se ctions of the endometrium demonstrates secretory phase endometrium. Sections of the myometrium d emonstrate areas of endometrial glands and stroma present in the myometrial wall. Sections al so demonstrate spindle cell nodules. The nodules demonstrate no increased mitotic activity o r atypical features. Sections of the serosal surface demonstrate no evidence of endometrial glan ds or stroma. Sections of fallopian tube demonstrate fimbriated end and fallopian tube sections. Paratubal cysts are identified. CONTINUED ON NEXT PAGE RUN DATE: 07/20/20 [facility] PAGE 3 RUN TIME: 1532 Specimen Inquiry RUN USER: INTERFACE SPEC #: [id number] PATIENT: LUCIANADIYA #[id number] (Continued) ----- Signed SIGNATURE ON Rishabh Perez 07/20/20 END OF REPORT COVID 19 INHOUSE [id number] 16:16:00 Test Item Value Reference Range Interpretation Comments COVID 19 INHOUSE AG NEGATIVE Negative Per [facility] facturer, (test code = negative result s should [id number]) be treated aspr esumptive and, if inconsi stent with clinical signs andsymptoms or necessary for patient man agement, should betested with an alternative mol ecular assay. Negative resultsdo not preclude SA RS-CoV-2 infection and s hould not be usedas the s ole basis for patient man agement decisions. Nega tive results should be considered in t he context of apatient's r ecent exposures, hist ory, presence of cli nicalsigns and symptoms co nsistent with COVID-19. URINALYSIS [id number] 16:08:00 Test Item Value Reference Range Interpretation Comments UA GLUCOSE DIPSTICK (test NEGATIVE mg/dL NEG code = DGLUU) UA BILIRUBIN DIPSTICK (test NEGATIVE mg/dL NEG code = BILU) UA KETONE DIPSTICK (test NEGATIVE mg/dL NEG code = KETU) UA SPECIFIC GRAVITY (test <=1.005 SG 1.005-1.030 code = SGU) UA BLOOD DIPSTICK (test TRACE mg/DL NEG A code = EBONY) UA PH DIPSTICK (test code = 6.0 pH UNITS 5.0-7.0 ITZEL) UA PROTEIN DIPSTICK (test NEGATIVE mg/dL NEG code = PROU) UA UROBILINIOGEN DIPSTICK 0.2 mg/dL <2.0 (test code = URO) UA NITRITE DIPSTICK (test NEGATIVE SCREEN NEG code = MELINDA) UA LEUKOCYTE ESTERASE NEGATIVE Leuk/mcL NEGATIVE DIPSTICK (test code = LEUU) Urine Specimen Type: Clean CatchUR HCG [id number] 16:08:00 Test Item Value Reference Range Interpretation Comments UR HCG QUAL (test code = HCGQLU) NEGATIVE NEGATIVE CBC W/AUTO [id number] 15:46:00 Test Item Value Reference Range Interpretation Comments WHITE BLOOD CELL (test code = 4.3 K/mm3 3.5-11.0 N WBC) RED BLOOD CELL (test code = 4.33 M/mm3 4.70-6.10 L RBC) HEMOGLOBIN (test code = HGB) 10.9 G/DL 10.4-14.9 N HEMATOCRIT (test code = HCT) 35.7 % 31.5-44.1 N MEAN CELL VOLUME (test code = 82.4 Fl 84.5-98.6 L MCV) MEAN CELL HGB (test code = MCH) 25.2 pg 27.0-34.2 L MEAN CELL HGB CONCETRATION 30.5 G/DL 31.5-34.0 L (test code = MCHC) RED CELL DISTRIBUTION WIDTH 16.0 SD 11.5-14.5 H (test code = RDW) PLATELET COUNT (test code = 327 K/mm3 150-450 N PLT) MEAN PLATELET VOLUME (test code 10.30 fL 7.0-10.5 N = MPV) NEUTROPHIL % (test code = NT%) 46.4 % 40-76 N IMMATURE GRANULOCYTE % (test 0.2 % 0.0-5.0 N code = IG%) LYMPHOCYTE % (test code = LY%) 40.9 % 20.5-51.1 N MONOCYTE % (test code = MO%) 6.4 % 1.7-9.3 N EOSINOPHIL % (test code = EO%) 5.2 % 0.0-6.0 N BASOPHIL % (test code = BA%) 0.9 % 0.0-2.0 N NUCLEATED RBC % (test code = 0.0 /100WBC% 0.0-1.0 N NRBC%) NEUTROPHIL # (test code = NT#) 2.0 K/mm3 1.8-7.6 N IMMATURE GRANULOCYTE # (test 0.01 x10 3/uL 0.00-0.03 N code = IG#) LYMPHOCYTE # (test code = LY#) 1.7 K/mm3 0.6-3.2 N MONOCYTE # (test code = MO#) 0.3 K/mm3 0.3-1.1 N EOSINOPHIL # (test code = EO#) 0.2 K/mm3 0.0-0.4 N BASOPHIL # (test code = BA#) 0.0 K/mm3 0.0-0.1 N NUCLEATED RBC # (test code = 0.0 K/mm3 0.0-0.1 N NRBC#) MANUAL DIFF REQUIRED (test code NO DIFF/SCN CRITERIA = MDIFF) THYROID STIMULATING [id number] 01:35:00 Test Item Value Reference Range Interpretation Comments TSH (test code = See_Comment [Automated message] [id number]) The system UB. generated this result transmitted ref erence range: 0.45 - 4 .70 mIU/L. The refe rence range was not u sed to interpret this result as normal/abnor mal. Lab Interpretation (test Normal code = 61147-6) [facility] [id number] 01:35:00 Test Item Value Reference Range Interpretation Comments TSH (test code = See_Comment [Automated message] [id number]) The system UB. generated this result transmitted ref erence range: 0.45 - 4 .70 mIU/L. The refe rence range was not u sed to interpret this result as normal/abnor mal. Lab Interpretation (test Normal code = 75580-4) [facility] [id number] 01:22:00 Test Item Value Reference Range Interpretation Comments FREE T4 (test code = See_Comment [Autom ated message] [id number]) The system UB. generated this result transmitted ref erence range: 0.78 - 2 .20 ng/dL:. The ref erence range was not u sed to interpret this result as normal/abnor mal. Lab Interpretation (test Normal code = 97944-9) [facility] [id number] 01:22:00 Test Item Value Reference Range Interpretation Comments FREE T4 (test code = See_Comment [Autom ated message] [id number]) The system UB. generated this result transmitted ref erence range: 0.78 - 2 .20 ng/dL:. The ref erence range was not u sed to interpret this result as normal/abnor mal. Lab Interpretation (test Normal code = 20303-8) [facility] VOLUNTARY RESEARCH 2020-02-18 13:58:53 Test Item Value Reference Range Interpretation Comments Consent To Contact For Voluntary Yes Research (test code = 4947) [facility] [id number] 20:59:00 Test Item Value Reference Range Interpretation Comments TROPONIN I (test <0.012 See_Comment [Automated code = 9541750302) message] The system which generated this result transmitted reference range : <=0.034 ng/mL. The reference range was not used to interpr et this result as normal/abnormal . STORM (test code = Equal or Less than STORM) 0.034 ng/ml---Normal ?Note: Cardiac troponin begins to rise 3-4 hours after the onset of ischemia. Repeat in 4-6 hours if the sample was drawn within 3-4 hours of the onset of the symptom and found normal. Between 0.035 and 0.120 ng/mL--- Borderline. Questionable myocardial injury or necrosis ? ?Note: Serial measurement may be necessary to confirm or exclude the diagnosis of myocardial injury or necrosis; Clinical correlation (symptoms, EKGs, imaging studies, and others) required; Repeat in 4-6 hours if clinically indicated. ? Equal or Higher than 0.121 ng/mL---Abnormal. Myocardial Injury or Necrosis Likely ? Biotin has been reported to cause a negative bias, interpret results relative to patient's use of biotin. ? Lab Interpretation Normal (test code = 25990-9) [facility]. METABOLIC PANEL (09596)2020-02-05 20:47:00 Test Item Value Reference Range Interpretation Comments NA (test code = 141 mmol/L 135-145 1987487660) K (test code = 3.9 mmol/L 3.5-5 2397008848) CL (test code = 106 mmol/L 98-108 9034775638) CO2 TOTAL (test code = 25 mmol/L 23-31 8416691624) AGAP (test code = 2-16 3980645960) BUN (test code = 11 mg/dL 7-23 2803714955) GLUCOSE (test code = 92 mg/dL 70-110 9362770913) CREATININE (test code 0.55 mg/dL 0.5-1.04 = 5847424325) TOTAL BILI (test code 0.3 mg/dL 0.1-1.1 = 1074738933) CALCIUM (test code = 9.8 mg/dL 8.6-10.6 6292091994) T PROTEIN (test code = 8.2 g/dL 6.3-8.2 1813023005) ALBUMIN (test code = 4.5 g/dL 3.5-5 1982484003) ALK PHOS (test code = 56 U/L 34-122 2713412704) ALTv (test code = 21 U/L 5-35 1742-6) AST(SGOT) (test code = 34 U/L 13-40 4422637285) eGFR Calculation mL/min/1.73m2 (Non-) (test code = 1521610039) eGFR Calculation mL/min/1.73m2 () (test code = 4042184903) STORM (test code = STORM) Association of Glomerular Filtration Rate (GFR) and Staging of Kidney Disease* + -+ + ---+| GFR (mL/min/1.73 m2) ?| With Kidney Damage ?| ?Without Kidney Damage+ -------+ ------+ ---------+| ?>90 ?| ?Stage one ?| ? Normal ?+ --+ -+ ----+| ?60-89 ?| ?Stage two ?| ? Decreased GFR ? + -+ + ---+| ?30-59 ?| ?Stage three ?| ? Stage three ? + -+ + ---+| ?15-29 ?| ?Stage four ? | ? Stage four ?+ --+ -+ ----+| ?<15 (or dialysis) ? ?| ?Stage five ? | ? Stage five ?+ --+ -+ ----+ *Each stage assumes the associated GFR level has been in effect for at least three months. ?Stages 1 to 5, with or without kidney disease, indicate chronic kidney disease. Notes: Determination of stages one and two (with eGFR >59mL/min/1.73 m2) requires estimation of kidney damage for at least three months as defined by structural or functional abnormalities of the kidney, manifested by either:Pathological abnormalities or Markers of kidney damage (including abnormalities in the composition of the blood or urine or abnormalities in imaging tests). [facility] 20:47:00 Test Item Value Reference Range Interpretation Comments APPEARANCE (test code = Hazy Clear A 2121388089) COLOR (test code = [place] Yellow A 9517503928) PH (test code = 4.8-8.0 5370226892) SP GRAVITY (test code = 1.003-1.030 1535841879) GLU U QUAL (test code = Normal Normal [id number]) BLOOD (test code = Negative Negative INTERFERE NCE FROM [id number]) ASCORBIC ACID M AY CAUSE FALSE NEG ATIVE RESULT KETONES (test code = 5 mg/dL Negative A 5229003307) PROTEIN (test code = Negative Negative 2887-8) UROBILIN (test code = 2.0 mg/dL Normal A 0933107788) BILIRUBIN (test code = Negative Negative 7291552341) NITRITE (test code = Negative Negative 6692679226) LEUK OVIDIO (test code = Negative Negative 7078326187) RBC/HPF (test code = See_Comment [Autom ated message] 8893673514) The system UB. generated this result transmitted ref erence range: 0 - 3 HP F. The reference range was not used to int erpret this result as normal/abnormal . WBC/HPF (test code = See_Comment [Autom ated message] 1339876226) The system ic h generated this result transmitted ref erence range: 0 - 5 HP F. The reference range was not used to int erpret this result as normal/abnormal . BACTERIA (test code = Few Negative A 9157133143) MUCOUS (test code = Marked Negative LPF A 4262006541) SQ EPITH (test code = HPF 1453468607) Lab Interpretation Abnormal (test code = 68250-5) [facility] with [id number] 20:36:00 Test Item Value Reference Range Interpretation Comments WBC (test code = See_Comment [Automated 6690-2) message] The sy stem which generated this result transmitted reference range : 4.30 - 11.10 10*3/?L. The reference range was not used to interpret this result as normal/abnormal . RBC (test code = See_Comment [Automated 789-8) message] The sy stem which generated this result transmitted reference range : 3.93 - 5.25 10*6/?L. The reference range was not used to interpret this result as normal/abnormal . HGB (test code = 10.7 g/dL 11.6-15 L 718-7) HCT (test code = 34.6 % 35.7-45.2 L 4544-3) MCV (test code = 77.1 fL 80.6-95.5 L 787-2) MCH (test code = 23.8 pg 25.9-32.8 L 785-6) MCHC (test code = 30.9 g/dL 31.6-35.1 L 786-4) RDW-SD (test code = 59.3 fL 39-49.9 H 63434-7) RDW-CV (test code = 21.8 % 12-15.5 H 788-0) PLT (test code = See_Comment H [Automated 777-3) message] The sy stem which generated this result transmitted reference range : 166 - 358 10*3/ ?L. The reference r cierra was not used to interpret this result as normal/abnormal . MPV (test code = 10.8 fL 9.5-12.9 41189-5) NRBC/100 WBC (test See_Comment [Automat ed code = 7422246975) message] The system which generated this result transmitted reference range : 0.0 - 10.0 /100 WBCs. The refer ence range was not u sed to interpret th is result as normal/abnormal . NRBC x10^3 (test code <0.01 See_Comment [Auto mated = [id number]) message] The s ystem which generated this result transmitted reference range : 10*3/?L. The reference range was not used to interpret this result as normal/abnormal . GRAN MAT (NEUT) % 47.4 % (test code = 770-8) IMM GRAN % (test code 0.20 % = 2084019061) LYMPH % (test code = 40.1 % 736-9) MONO % (test code = 7.8 % 5905-5) EOS % (test code = 3.8 % 713-8) BASO % (test code = 0.7 % 706-2) GRAN MAT x10^3(ANC) 2.11 10*3/uL 1.88-7.09 (test code = 6008384659) IMM GRAN x10^3 (test <0.03 0-0.06 code = 4644491033) LYMPH x10^3 (test code 1.79 10*3/uL 1.32-3.29 = 731-0) MONO x10^3 (test code 0.35 10*3/uL 0.33-0.92 = 742-7) EOS x10^3 (test code = 0.17 10*3/uL 0.03-0.39 711-2) BASO x10^3 (test code 0.03 10*3/uL 0.01-0.07 = 704-7) Lab Interpretation Abnormal (test code = 14077-6) [facility]"
[2022-07-04] MEDS ORDERED: HYDROCODONE/APAP 10/325 TAB ONE (07:45)
[2022-07-04] MEDS ORDERED: KETOROLAC 30 MG/ML INJ ONE (07:45)
--- NOTE | 2022-07-04 08:48 | ER ---
Nurse's Notes [facility] Name: Carina Pedraza Age: 47 yrs Sex: Female : 1975 Arrival Date: 07/04/2022 Time: 07:05 Bed 12 Private MD: Diagnosis: Fall (on) (from) other stairs and steps;Contusion of right knee;Pain in right knee;Sprains and strains of unspecified ligament of unspecified ankle, initial encounter;Contusion of finger without damage to nail;Other sprain of right index finger Presentation: 07/04 07:11 Chief complaint: Patient states: missed a step coming up the stairs last night, twisted iw my right knee and ankle and I fell on my right hand. 07:11 Acuity: REAL 4 iw 07:11 Method Of Arrival: Ambulatory iw 07:12 Coronavirus screen: At this time, the client does not indicate any symptoms associated iw with coronavirus-19. Ebola Screen: Patient negative for fever greater than or equal to 101.5 degrees Fahrenheit, and additional compatible Ebola Virus Disease symptoms Patient denies exposure to infectious person. Patient denies travel to an Ebola-affected area in the 21 days before illness onset. No symptoms or risks identified at this time. Initial Sepsis Screen: Does the patient meet any 2 criteria? No. Patient's initial sepsis screen is negative. Does the patient have a suspected source of infection? No. Patient's initial sepsis screen is negative. Risk Assessment: Do you want to hurt yourself or someone else? Patient reports no desire to harm self or others. Onset of symptoms was July 03, 2022. 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 Screenin:[address] [facility] ED Fall Risk Assessment (Adult) History of falling in the last 3 months, iw including since admission Yes- single mechanical fall (1 pt). Abuse screen: Denies threats or abuse. Denies injuries from another. Nutritional screening: No deficits noted. Tuberculosis screening: No symptoms or risk factors identified. Assessment: 07:18 General: Appears in no apparent distress. Behavior is calm, cooperative. Pain: iw Complains of pain in right knee Pain currently is 10 out of 10 on a pain scale. Neuro: Level of Consciousness is awake, alert, obeys commands, Oriented to person, place, time, situation, Moves all extremities. Full function. Cardiovascular: Patient's skin is warm and dry. Respiratory: Respiratory effort is even, unlabored, Respiratory pattern is regular, symmetrical. Derm: Skin is intact, is healthy with good turgor. Musculoskeletal: Range of motion: limited in right knee Reports pain in right knee. 08:42 Reassessment: Patient appears in no apparent distress at this time. Patient and/or iw family updated on plan of care and expected duration. Pain level reassessed. Patient is alert, oriented x 3, equal unlabored respirations, skin warm/dry/pink. Vital Signs: 07:12 BP 156 / 96; Pulse 87; Resp 16; Temp 98.2; Pulse Ox 100% on R/A; Weight 89.81 kg; iw Height 5 ft. 4 in. ; Pain 10/10; 07:12 Body Mass Index 33.99 (89.81 kg, 162.56 cm) iw 07:12 Pain Scale: Adult iw ED Course: 07:05 Patient arrived in ED. rg4 07:12 Triage completed. iw 07:14 Arm band placed on. iw 07:15 Patient has correct armband on for positive identification. iw 07:18 No provider procedures requiring assistance completed. Patient did not have IV access iw during this emergency room visit. 07:19 Dirk Woodall MD is Attending Physician. lisa 07:34 Moriah Humphrey, ANGEL LUIS is Primary Nurse. iw 08:11 Knee Right 3 View XRAY In Process Unspecified. EDMS 08:11 Hand Right 3 View XRAY In Process Unspecified. EDMS 08:11 Ankle Right 3 View XRAY In Process Unspecified. EDMS 08:11 Tib Fib Right XRAY In Process Unspecified. EDMS 08:45 Blake Arora MD is Referral Physician. lisa Administered Medications: 07:50 Drug: [place] PO 10 mg-325 mg 1 tabs Route: PO; iw 08:50 Follow up: Response: No adverse reaction; Pain is decreased iw 07:51 Drug: Ketorolac IM 60 mg Route: IM; Site: right gluteus; iw 09:00 Follow up: Response: No adverse reaction; Pain is decreased iw Medication: 07:19 VIS not applicable for this client. iw Outcome: 08:46 Discharge ordered by . lisa 09:03 Discharged to home ambulatory, with family. iw 09:03 Condition: good 09:03 Discharge instructions given to patient, family, Instructed on discharge instructions, follow up and referral plans. medication usage, Demonstrated understanding of instructions, follow-up care, medications, Prescriptions given X 2. 09:04 Patient left the ED. zm Signatures: Dispatcher [employer] EDAR Dirk Woodall MD MD cha Williams, Irene, RN RN Janet Hoyt Zaina zm
--- NOTE | 2022-07-04 08:48 | EDPHYS ---
Physician Documentation [facility] Name: Carina Pedraza Age: 47 yrs Sex: Female : 1975 Arrival Date: 07/04/2022 Time: 07:05 Bed 12 Private MD: ED Physician Dirk Woodall HPI: 07/04 08:00 This 47 yrs old Black Female presents to ER via Ambulatory with complaints of Fall lisa Injury, Knee Pain. 08:00 Details of fall: The patient fell from an upright position, while walking. Onset: The lisa symptoms/episode began/occurred yesterday, last night. Associated injuries: The patient sustained right hand and right leg, decreased range of motion, painful injury. Severity of symptoms: At their worst the symptoms were mild, moderate, in the emergency department the symptoms are unchanged. The patient has not experienced similar symptoms in the past. 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 ROS: 08:04 Constitutional: Negative for fever, chills, and weight loss, Eyes: Negative for injury, lisa pain, redness, and discharge, ENT: Negative for injury, pain, and discharge, Neck: Negative for injury, pain, and swelling, Cardiovascular: Negative for chest pain, palpitations, and edema, Respiratory: Negative for shortness of breath, cough, wheezing, and pleuritic chest pain, Abdomen/GI: Negative for abdominal pain, nausea, vomiting, diarrhea, and constipation, Back: Negative for injury and pain, : Negative for injury, bleeding, discharge, and swelling, Skin: Negative for injury, rash, and discoloration, Neuro: Negative for headache, weakness, numbness, tingling, and seizure, Psych: Negative for depression, anxiety, suicide ideation, homicidal ideation, and hallucinations, Allergy/Immunology: Negative for hives, rash, and allergies, Endocrine: Negative for neck swelling, polydipsia, polyuria, polyphagia, and marked weight changes, Hematologic/Lymphatic: Negative for swollen nodes, abnormal bleeding, and unusual bruising. 08:04 MS/extremity: Positive for decreased range of motion, pain, swelling, of the lateral aspect of right knee, right ankle, right knee and anterior aspect of right ankle, right index finger. Exam: 08:04 Constitutional: This is a well developed, well nourished patient who is awake, alert, lisa and in no acute distress. Head/Face: Normocephalic, atraumatic. Eyes: Pupils equal round and reactive to light, extra-ocular motions intact. Lids and lashes normal. Conjunctiva and sclera are non-icteric and not injected. Cornea within normal limits. Periorbital areas with no swelling, redness, or edema. ENT: Nares patent. No nasal discharge, no septal abnormalities noted. Tympanic membranes are normal and external auditory canals are clear. Oropharynx with no redness, swelling, or masses, exudates, or evidence of obstruction, uvula midline. Mucous membranes moist. Neck: Trachea midline, no thyromegaly or masses palpated, and no cervical lymphadenopathy. Supple, full range of motion without nuchal rigidity, or vertebral point tenderness. No Meningismus. Chest/axilla: Normal chest wall appearance and motion. Nontender with no deformity. No lesions are appreciated. Cardiovascular: Regular rate and rhythm with a normal S1 and S2. No gallops, murmurs, or rubs. Normal PMI, no JVD. No pulse deficits. Respiratory: Lungs have equal breath sounds bilaterally, clear to auscultation and percussion. No rales, rhonchi or wheezes noted. No increased work of breathing, no retractions or nasal flaring. Abdomen/GI: Soft, non-tender, with normal bowel sounds. No distension or tympany. No guarding or rebound. No evidence of tenderness throughout. Back: No spinal tenderness. No costovertebral tenderness. Full range of motion. Female : Normal external genitalia. Skin: Warm, dry with normal turgor. Normal color with no rashes, no lesions, and no evidence of cellulitis. Neuro: Awake and alert, GCS 15, oriented to person, place, time, and situation. Cranial nerves II-XII grossly intact. Motor strength 5/5 in all extremities. Sensory grossly intact. Cerebellar exam normal. Normal gait. Psych: Awake, alert, with orientation to person, place and time. Behavior, mood, and affect are within normal limits. 08:04 Musculoskeletal/extremity: Extremities: grossly normal except: decreased ROM, pain, swelling, tenderness, noted in the dorsal aspect of middle phalanx of right index finger, dorsal aspect of proximal phalanx of right index finger and right index fingernail: decreased ROM, pain, noted in the right ankle and anterior aspect of right ankle: decreased ROM, pain. Vital Signs: 07:12 BP 156 / 96; Pulse 87; Resp 16; Temp 98.2; Pulse Ox 100% on R/A; Weight 89.81 kg; iw Height 5 ft. 4 in. ; Pain 10/10; 07:12 Body Mass Index 33.99 (89.81 kg, 162.56 cm) iw 07:12 Pain Scale: Adult iw MDM: 07:19 Patient medically screened. lisa 08:06 Differential diagnosis: dislocation, closed fracture, contusion, abrasion, tendonitis, lisa sprain, arthritis, gout. Differential diagnosis: contusion, fracture, multiple trauma, sprain, strain. Data reviewed: vital signs, nurses notes, radiologic studies. Consideration of Admission/Observation Escalation of care including admission/observation considered. Test considered but Not performed: MRI: no mri done. Care significantly affected by the following chronic conditions: Hypertension, osteoarthritis. 07/04 07:28 Order name: Knee Right 3 View XRAY [facility] 07/04 07:28 Order name: Hand Right 3 View XRAY [facility] 07/04 07:28 Order name: Ankle Right 3 View XRAY [facility] 07/04 07:28 Order name: Tib Fib Right XRAY [facility] 07/04 07:28 Order name: Ice pack; Complete Time: 07:35 lisa 07/04 08:11 Order name: Knee Immobilizer; Complete Time: 08:40 lisa 07/04 08:12 Order name: Misc. Order: ryan to right ankle; Complete Time: 08:40 lisa Administered Medications: 07:50 Drug: [place] PO 10 mg-325 mg 1 tabs Route: PO; iw 08:50 Follow up: Response: No adverse reaction; Pain is decreased iw 07:51 Drug: Ketorolac IM 60 mg Route: IM; Site: right gluteus; iw 09:00 Follow up: Response: No adverse reaction; Pain is decreased iw Disposition Summary: 07/04/22 08:46 Discharge Ordered Location: Home lisa Problem: new lisa Symptoms: have improved lisa Condition: Stable lisa Diagnosis - Fall (on) (from) other stairs and steps lisa - Contusion of right knee lisa - Pain in right knee lisa - Sprains and strains of unspecified ligament of unspecified ankle, initial encounter lisa - Contusion of finger without damage to nail lisa - Other sprain of right index finger lisa Followup: lisa - With: Private Physician - When: 2 - 3 days - Reason: Recheck today's complaints, Continuance of care, Re-evaluation by your physician Followup: lisa - With: Blake Arora MD - When: 2 - 3 days - Reason: Recheck today's complaints, Re-evaluation by your physician Discharge Instructions: - Discharge Summary Sheet lisa - Ankle Sprain lisa - Fall Prevention in the Home, Adult lisa - Knee Sprain, Adult lisa - RICE Therapy for Routine Care of Injuries lisa - Finger Sprain, Adult lisa - RICE Therapy for Routine Care of Injuries, [id number] lisa - Ankle Sprain, [id number] lisa - Fall Prevention in the Home, Adult, [id number] lisa - Knee Sprain, Adult, [id number] lisa - Finger Sprain, Adult, [id number] lisa Forms: - Medication Reconciliation Form lisa - Thank You Letter lisa - Antibiotic Education lisa - Prescription Opioid Use lisa - Work release form iw Prescriptions: - acetaminophen-codeine 300-15 mg Oral tablet - take 2 tablet by ORAL route 4 times per day; 20 tablet; Refills: 0, Product lisa Selection Permitted - Diclofenac Sodium 75 mg Oral tablet,delayed release (DR/EC) - take 1 tablet by ORAL route 2 times per day; 20 tablet; Refills: 0, Product lisa Selection Permitted Signatures: Dispatcher [employer] Dirk Bundy MD MD cha Williams, Irene, RN RN iw
--- NOTE | 2022-07-04 08:55 | RAD REPORT ---
EXAM DESCRIPTION: RAD - Tib Fib Right - 07/04/2022 8:09 am CLINICAL HISTORY: PAIN COMPARISON: No comparisons FINDINGS: No fracture or dislocation seen. Small joint effusion.
--- NOTE | 2022-07-04 08:56 | RAD REPORT ---
EXAM DESCRIPTION: RAD - Ankle Right 3 View - 07/04/2022 8:09 am CLINICAL HISTORY: PAIN COMPARISON: Tib Fib Right dated 07/04/2022; Knee Right 3 View dated 07/04/2022; Hand Right 3 View date d 07/04/2022 FINDINGS: Mild soft tissue swelling is seen adjacent to the lateral malleolus. Small plantar calcane al spur. No acute fracture visualized.
--- NOTE | 2022-07-04 08:57 | RAD REPORT ---
EXAM DESCRIPTION: RAD - Hand Right 3 View - 07/04/2022 8:09 am CLINICAL HISTORY: PAIN COMPARISON: No comparisons FINDINGS: Advanced degenerative changes seen first carpal/metacarpal joint. No acute fracture or dis location.
--- NOTE | 2022-07-04 09:11 | RAD REPORT ---
EXAM DESCRIPTION: RAD - Knee Right 3 View - 07/04/2022 8:09 am CLINICAL HISTORY: PAIN COMPARISON: Knee Right 3 View dated 12/07/2020 FINDINGS: No evidence of acute fracture seen. No dislocation evident. Small suprapatellar joint effu rita.
[2022-07-04 11:18] VITALS: BP 156/96; TEMP 98.2; O2SAT 100
== END 2022-07-04 09:04 | disposition home or self-care (01) ==
LOC: ER 07:00
DX: S80.01XA Contusion of right knee, initial encounter (principal); S93.401A Sprain of unspecified ligament of right ankle, initial encounter; S63.690A Other sprain of right index finger, initial encounter; W10.9XXA Fall (on) (from) unspecified stairs and steps, initial encounter